=== PATIENT | female | born 1945 | race African-American/Black ===

== ENCOUNTER 2018-03-02 07:22 | Day surgery (SDC) | payer OTHER ==
[~2018-03-02] VITALS: Ht 166.4 cm; Wt 78.0 kg
[~2018-03-02 07:22] MED LIST: ASPI-1159 PO; GABA-531 PO; HYDR25TA PO; LOSA50TA20 PO
[2018-03-02] MEDS ORDERED: BUPIVACAINE HCL/PF 0.5% (5MG/ML) 10ML ONE (07:44)
[2018-03-02] MEDS ORDERED: LIDOCAINE HCL 1% 20ML VIAL (Pyxis) INJ ONE (07:45)
[2018-03-02] MEDS ORDERED: BACITRACIN 50,000 UNITS/VIAL ONE (07:45)
[2018-03-02] MEDS ORDERED: BETAMETHASONE ACET/BETAMET 30 MG/5 ML VIAL IM ONE (07:45)
[2018-03-02] MEDS ORDERED: LACTATED RINGERS 1,000 ML IV SCH (08:00)
[2018-03-02] MEDS ORDERED: FENTANYL CITRATE/PF 50MCG/ML 2ML VIAL ONE (08:58)
[2018-03-02] MEDS ORDERED: LIDOCAINE HCL/PF 1% 10 MG/ML 30ML VIAL ONE (08:59)
[2018-03-02] MEDS ORDERED: PROPOFOL 200MG/20ML VIAL IV ONE (08:59)
[2018-03-02] MEDS ORDERED: ONDANSETRON HCL 4MG/2ML VIAL ONE (08:59)
[2018-03-02] MEDS ORDERED: EPHEDRINE SULFATE 50MG/ML VIAL ONE (08:59)
[2018-03-02] MEDS ORDERED: DEXAMETHASONE 4MG/ML 1ML VIAL ONE (08:59)
[2018-03-02] MEDS ORDERED: ROCURONIUM BROMIDE 10MG/ML VIAL 5ML IV ONE (09:12)
[2018-03-02] MEDS ORDERED: GLYCOPYRROLATE 0.2 MG/ML 2ML VIAL ONE (09:30)
[2018-03-02] MEDS ORDERED: MORPHINE SULFATE 4 MG/ML CPJ (NOT FOR IM USE) IV PRN (10:00)
[2018-03-02] MEDS ORDERED: TERBUTALINE SULFATE 1MG/ML VIAL ONE (10:32)
== END 2018-03-02 12:00 | disposition home or self-care (01) ==
LOC: OR 07:22
PROVIDERS: ATTEND Podiatrist Foot & Ankle Surgery
DX: M21.612 Bunion of left foot (principal); M21.622 Bunionette of left foot; M20.42 Other hammer toe(s) (acquired), left foot; I10 Essential (primary) hypertension; J44.9 Chronic obstructive pulmonary disease, unspecified; K21.9 Gastro-esophageal reflux disease without esophagitis; F17.200 Nicotine dependence, unspecified, uncomplicated; Z79.82 Long term (current) use of aspirin; Z79.899 Other long term (current) drug therapy; Z79.2 Long term (current) use of antibiotics; Z88.8 Allergy status to other drugs, medicaments and biological substances; Z88.0 Allergy status to penicillin
CPT/HCPCS: 28110; 28285; 28296; 88300; J0702; J1100; J2405; J3010; J3105; J3490; J7120; 88305; 88311; J2704